=== PATIENT | female | born 1995 | race African-American/Black ===

== ENCOUNTER 2025-05-31 06:27 | Emergency (ER) | payer SELFPAY ==
[~2025-05-31] VITALS: Ht 175.3 cm; Wt 107.0 kg
[2025-05-31 06:53] VITALS: BP 122/72
[2025-05-31 07:35] LABS: PLATELET COUNT (AUTO) 186 K/uL (179-408); RED BLOOD CELL COUNT(AUTO) 4.08 MIL/uL (3.63-4.92); RED CELL DISTRIBUTION WIDTH 15.7 % (12.3-17.7); WHITE BLOOD COUNT (AUTO) 6.8 K/uL (3.8-11.8)
[2025-05-31 07:43] LABS: CREATININE 0.8 mg/dL (0.6-1.3); SODIUM SERUM 144.0 mmol/L (136-145); UREA NITROGEN, BLOOD 8.0 mg/dL (7-18)
[2025-05-31 07:48] LABS: ASPARTATE AMINOTRANSFERASE 20.0 U/L (15-37); TOTAL PROTEIN, SERUM 6.0 g/dL (6.4-8.2)
[2025-05-31] MEDS ORDERED: FERR325T23 PO (08:41)
[2025-05-31] MEDS ORDERED: NAPR-1477 PO (08:41)
[2025-05-31 09:53] VITALS: BP 121/71; TEMP 98; O2SAT 100
== END 2025-05-31 09:53 | disposition home or self-care (01) ==
LOC: ER 07:06
DX: S93.401A Sprain of unspecified ligament of right ankle, initial encounter (principal); E46 Unspecified protein-calorie malnutrition; D64.9 Anemia, unspecified; E83.51 Hypocalcemia; F12.90 Cannabis use, unspecified, uncomplicated; F17.210 Nicotine dependence, cigarettes, uncomplicated; Z59.00 Homelessness unspecified; X58.XXXA Exposure to other specified factors, initial encounter; Y93.89 Activity, other specified; Y92.89 Other specified places as the place of occurrence of the external cause; Y99.9 Unspecified external cause status
CPT/HCPCS: 36415; 73610; 85025; A4606; A4663